=== PATIENT | female | born 1995 | race African-American/Black ===

== ENCOUNTER 2017-08-02 13:56 | Emergency (ER) | payer SELFPAY ==
[2017-08-02 14:04] VITALS: TEMP 97
--- NOTE | 2017-08-02 14:23 | EDPHY ---
H & P Time Seen by Provider: 08/02/17 14:07 HPI/ROS: CHIEF COMPLAINT: Syncope HISTORY OF PRESENT ILLNESS: 21-year-old female presents after a syncopal episode. She was sitting in a restaurant just prior to arrival, which began to feel dizzy and then had a witnessed syncopal episode. Friends helped her to the floor and she woke up immediately. No seizure activity. She felt panicky when she awoke, but was not confused. She now feels sleepy but otherwise back to normal. She did not hurt herself. This morning she had a cup of coffee and then had edible THC. She did not eat anything because of nausea. She has a history of multiple prior syncopal episodes and prior negative workup in childhood. Family history of seizure disorder, but she has not been diagnosed with seizures. She is not sure if she has had a prior cardiac evaluation. Last syncopal episode was 1 year ago. Last menstrual period-unsure, on Depo- Provera REVIEW OF SYSTEMS: Constitutional: No fever, no chills Eyes: No visual changes ENT: No sore throat Respiratory: No cough, no shortness of breath Cardiac: No chest pain Gastrointestinal: no vomiting, no abdominal pain Genitourinary: no dysuria Musculoskeletal: No leg pain or swelling Skin: No rash Neurological: No headache, no numbness, no weakness Psychiatric: No depression Past Medical/Surgical History: Syncope Social History: Self employed No alcohol or IVDA Smoking Status: Former smoker Physical Exam: General Appearance: Alert, pleasant Eyes: Pupils equal and round, no conjunctival pallor or injection ENT, Mouth: Mucous membranes moist Neck: Normal inspection Respiratory: Lungs are clear to auscultation Cardiovascular: Regular rate and rhythm, no murmur Gastrointestinal: Abdomen is soft and nontender Neurological: Alert, oriented x3, cranial nerves II through XII intact, motor 5 /5, sensory intact to light touch, normal gait. Skin: Warm and dry Extremities: Normal inspection Psychiatric: Mood and affect normal Constitutional: Initial Vital Signs Temperature (C) 36.1 C 08/02/17 13:59 Heart Rate 70 08/02/17 13:59 Respiratory Rate 14 08/02/17 13:59 Blood Pressure 108/68 08/02/17 13:59 O2 Sat (%) 100 08/02/17 13:59 O2 Delivery Mode Room Air Allergies/Adverse Reactions: No Known Allergies Allergy (Unverified 08/02/17 13:59) Home Medications: Medication Instructions Recorded NK [No Known Home Meds] 08/02/17 Medical Decision Making - Diagnostics EKG Interpretation: EKG interpreted by me reveals normal sinus rhythm, rate 82, no ST or T segment changes. Interpretation: Normal EKG ED Course/Re-evaluation: This patient presents after a witnessed syncopal episode. Stat EKG reveals no evidence of dysrhythmia. Extensive prior workup negative. Unclear whether she had a cardiac evaluation however and I have suggested to her that she follow up with a inventory control planner for Holter monitoring. Pt remained in NSR throughout. Given IVF 1 liter, asymptomatic throughout ED stay. Most likely vasovagal episode. Will f/u PCP. Differential Diagnosis: Differential diagnosis includes though is not limited to cardiac dysrhythmia, ectopic , CVA, TIA, GI bleed, hypoglycemia. - Data Points Laboratory Results: Laboratory Results 08/02/17 13:56 08/02/17 13:56 Medications Given: Discontinued Medications Sodium Chloride (Ns) 1,000 mls @ 0 mls/hr IV EDNOW ONE; Wide Open PRN Reason: Protocol Stop: 08/02/17 14:25 Last Admin: 08/02/17 14:42 Dose: 1,000 mls Departure - Departure Disposition: Home, Routine, Self-Care Clinical Impression: Syncope Qualifiers: Syncope type: vasovagal syncope Qualified Code(s): R55 - Syncope and collapse Condition: Good Instructions: Syncope (ED) Additional Instructions: Drink plenty of fluids. Return for recurrent symptoms or any concerns. Referrals: Sridevi Escobedo MD [Medical Doctor] - 5-7 days, call for appt.
[2017-08-02] MEDS ORDERED: NS 1,000 ML IV ONE (14:24)
[2017-08-02 14:29] LABS: PLATELET COUNT 299 10^3/uL (150-400)
--- NOTE | 2017-08-02 15:20 | CPEKG ---
Heart Rate: 82 RR Interval: 732 P-R Interval: 148 QRSD Interval: 76 QT Interval: 368 QTC Interval: 430 P Atwood: 44 QRS Atwood: 48 T Wave Atwood: 37 EKG Severity - BORDERLINE ECG - EKG Impression: SINUS RHYTHM EKG Impression: PROBABLE LEFT ATRIAL ABNORMALITY Electronically Signed By: Arin Hall 02-Aug-2017 21:14:54
[2017-08-02 15:26] VITALS: BP 112/71; PULSE 90; RESP 16; O2SAT 99
== END 2017-08-02 15:26 | disposition home or self-care (01) ==
DX: R55 Syncope and collapse (principal); E86.9 Volume depletion, unspecified; Z87.891 Personal history of nicotine dependence